=== PATIENT | female | born 1980 | race Caucasian/White ===

== ENCOUNTER 2016-10-10 22:48 | Inpatient (IN) | payer OTHER ==
[2016-10-10] MEDS ORDERED: fentaNYL* 50 MCG/ML 2 ML VIAL (100 MCG VIAL) ONE (23:18)
[2016-10-10] MEDS ORDERED: fentaNYL* 50 MCG/ML 2 ML VIAL (100 MCG VIAL) IV ONE (23:21)
[2016-10-10 23:29] LABS: Hematocrit 38 % (35-47); Mean Corpuscular HGB Conc 34 g/dl (31-36); Mean Corpuscular Hemoglobin 29 pg (27-31); Mean Corpuscular Volume 85 fL (80-97); Mean Platelet Volume 9 um3 (7.4-10.4); Red Blood Count 4.44 10^6/ul (4.0-5.4); Red Cell Distribution Width 14 % (10.5-15); White Blood Count 8.7 10^3/ul (3.5-10.8)
[2016-10-11] MEDS ORDERED: Oxytocin in LR* 0 UNITS/0 ML BAG IVPB ONE (00:05)
[2016-10-11] MEDS ORDERED: Oxytocin in LR* 20 UNITS/1,000 ML BAG IVPB ONE (02:13)
[2016-10-11] MEDS ORDERED: Acetaminophen TAB* 325 MG PO PRN (02:47)
[2016-10-11] MEDS ORDERED: Witch Hazel PAD* JAR TOPICAL PRN (02:47)
[2016-10-11] MEDS ORDERED: Dibucaine 1% 28.35 GM TUBE PR PRN (02:47)
[2016-10-11] MEDS ORDERED: oxyCODONE/Acetamin 5/325 MG* TAB PO PRN (02:52)
[2016-10-11] MEDS ORDERED: Oxytocin in LR* 20 UNITS/1,000 ML BAG IVPB SCH (03:00)
[2016-10-11] MEDS: Ibuprofen TAB* 600 MG PO PRN ×3 (05:09→20:29)
[2016-10-11] MEDS: Docusate CAP* 100 MG PO SCH ×3 (09:10→20:28)
[2016-10-12 00:31] VITALS: BP 111/64
[2016-10-12 01:22] LABS: Hematocrit 32 % (35-47); Hemoglobin 10.7 g/dl (12.0-16.0); Mean Corpuscular HGB Conc 34 g/dl (31-36); Mean Corpuscular Hemoglobin 29 pg (27-31); Mean Corpuscular Volume 87 fL (80-97); Mean Platelet Volume 9 um3 (7.4-10.4); Red Blood Count 3.66 10^6/ul (4.0-5.4); Red Cell Distribution Width 14 % (10.5-15); White Blood Count 10.3 10^3/ul (3.5-10.8)
[2016-10-12] MEDS ORDERED: Ferrous Gluconate TAB* 324 MG TAB PO SCH (09:00)
== END 2016-10-12 03:15 | disposition home or self-care (01) | DRG 560 ==
LOC: MCHOBOUT 22:48 → MCHOB 22:52
PROVIDERS: ADMIT Midwife; ATTEND Midwife
PROC: 10E0XZZ Delivery of Products of Conception, External Approach (ICD-10-PCS; principal; 2016-10-11)
PROC: 0HQ9XZZ Repair Perineum Skin, External Approach (ICD-10-PCS; 2016-10-11)
DX: O48.0 Post-term pregnancy (principal); O69.89X0 Labor and delivery complicated by other cord complications, not applicable or unspecified; Z3A.40 40 weeks gestation of pregnancy; O70.0 First degree perineal laceration during delivery; Z37.0 Single live birth
CPT/HCPCS: 36415; 85025; 86850; 86900; 86901; A9270-GY; J3010

== ENCOUNTER 2017-01-07 09:43 | Emergency (ER) | payer MEDICAID ==
[2017-01-07 10:00] VITALS: BP 99/64
[2017-01-07] MEDS ORDERED: Acetaminophen TAB* 325 MG PO ONE (10:50)
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
== END 2017-01-07 11:03 | disposition home or self-care (01) ==
LOC: UCEAST 09:43
DX: S20.20XA Contusion of thorax, unspecified, initial encounter (principal); X58.XXXA Exposure to other specified factors, initial encounter; Y93.83 Activity, rough housing and horseplay; Y92.9 Unspecified place or not applicable; Z88.1 Allergy status to other antibiotic agents
CPT/HCPCS: 99212; A9270-GY; G0463

== ENCOUNTER 2017-01-29 10:23 | Emergency (ER) | payer MEDICAID ==
[2017-01-29 12:43] VITALS: BP 94/61
--- NOTE | 2017-01-29 15:40 | UC ---
Throat Pain/Nasal Ac HPI - HPI Summary HPI Summary: PT NOTED INCREASING PAINFUL SWELLING UNDER RT JAW LINE YESTERDAY. PT ALSO REPORTS BAD TASTE IN MOUTH. PAIN WITH SWALLOWING. DENIES FEVER, CHILLS, MYALGIS, SINUS SX, RASHES, COUGH, MATOS, DENTAL PAIN. - History of Current Complaint Chief Complaint: UCRespiratory Stated Complaint: SORE THROAT Time Seen by Provider: 01/29/17 10:51 Hx Obtained From: Patient Hx Last Menstrual Period: delivered 10/11/16, no menses yet Onset/Duration: Sudden Onset, Lasting Days, Still Present, Worse Since - today Severity: Moderate Pain Intensity: 5 Pain Scale Used: Adult Non Verbal Cough: None Associated Signs & Symptoms: Positive: Dysphagia - pain. Negative: Drooling, Wheezing, Hoarseness, Sinus Discomfort, Nasal Discharge, Fever, Vomiting, Rash - Allergies/Home Medications Allergies/Adverse Reactions: Allergies Allergy/AdvReac Type Severity Reaction Status Date / Time Amoxicillin Allergy Rash Verified 01/29/17 10:47 PMH/Surg Hx/FS Hx/Imm Hx Previously Healthy: Yes - Surgical History Surgical History: Yes Surgery Procedure, Year, and Place: L shoulder - Family History Known Family History: Positive: Cardiac Disease, Diabetes - Social History Occupation: Employed Full-time Lives: With Family Alcohol Use: None Substance Use Type: None Smoking Status (MU): Never Smoked Tobacco - Immunization History Most Recent Influenza Vaccination: declined Most Recent Pneumonia Vaccination: never Review of Systems Constitutional: Negative Skin: Negative Eyes: Negative ENT: Sore Throat Respiratory: Negative Cardiovascular: Negative Gastrointestinal: Negative Genitourinary: Negative Neurological: Negative Psychological: Negative All Other Systems Reviewed And Are Negative: Yes Physical Exam Triage Information Reviewed: Yes Appearance: Well-Appearing, No Pain Distress, Well-Nourished Vital Signs: Initial Vital Signs Temp 96.7 F 01/29/17 10:48 Pulse 92 01/29/17 10:48 Resp 16 01/29/17 10:48 BP 119/66 01/29/17 10:48 Pulse Ox 100 01/29/17 10:48 Vital Signs Reviewed: Yes Eyes: Positive: Conjunctiva Clear. Negative: Discharge ENT: Positive: Hearing grossly normal, Pharynx normal, TMs normal. Negative: Nasal congestion, Nasal drainage, Tonsillar swelling, Tonsillar exudate, Trismus , Muffled/hoarse voice Neck: Positive: Supple, Tenderness @ - swollen tender hot submandibular gland. surrounding lad, Enlarged Nodes @ Respiratory: Positive: Lungs clear, Normal breath sounds, No respiratory distress, No accessory muscle use Cardiovascular: Positive: RRR, No Murmur Musculoskeletal Exam: Normal Neurological: Positive: Alert, Muscle Tone Normal Psychological: Positive: Age Appropriate Behavior Skin Exam: Normal Throat Pain/Nasal Course/Dx - Course Course Of Treatment: called this pt yesterday evening(01/29/17) and again today to check on her. no answer. left message that she could call me with questions or concerns. left my cell number. followed up with pt via phone over the weekend. pt called back(01/30/17) pt had increassed pain/swelling/calor on but by the time I spoke with her calor, pain and swelling mild-mod dimminished but pt still anxious. encouraged continued use of tart, warm compress and abx. 01/31/18 calor resolved, pain and swelling significantly diminished but remaining swelling now feeling hard. spoke with pt again this am. pain gone but hard lump remains. recommeded pt establish with pcp(vibha purdy) for follow up. - Differential Dx/Diagnosis Differential Diagnosis/HQI/PQRI: Pharyngitis, Tonsillitis, URI Provider Diagnoses: sialodinitis Discharge - Discharge Plan Condition: Stable Disposition: HOME Prescriptions: Cephalexin CAP* [Keflex CAP*] 500 mg PO BID #20 cap Patient Education Materials: Sialoadenitis (ED) Referrals: No Primary Care Phys,NOPCP [Primary Care Provider] - Additional Instructions: CEPHALEXIN: The antibiotic you've been prescribed is a member of the cephalosporin class. This type of antibiotic covers a wide variety of infections, including those of the skin, lungs, and urinary tract. It's useful for staph infections. This antibiotic is slightly similar to the penicillin family. In rare cases , a person who is allergic to penicillin will also be allergic to this medication. If you have had a severe allergic reaction to penicillin, and have not taken this antibiotic since that time, notify your doctor. Antibiotics which cover many germs ("broad spectrum" antibiotics) are more likely to cause diarrhea or "yeast" infections. Women prone to vaginal yeast problems may suffer an attack after taking this antibiotic. In infants, oral thrush (white spots "stuck" on the cheek) or yeast diaper rash may result. See your doctor if these problems occur. Call at once if you develop itching, hives , shortness of breath, or lightheadedness. ANYTIME YOU TAKE AN ANTIBIOTIC, IT IS IMPORTANT TO REPLENISH THE BODY'S SUPPLY OF "GOOD BACTERIA." YOU CAN GET GOOD BACTERIA FROM HIGH QUALITY CULTURED FOODS SUCH LOCAL YOGURT, SOUR KRAUT, NICK CEASAR, NATURALLY FERMENTED PICKLES AND PROBIOTIC DRINKS. YOU CAN ALSO GET GOOD BACTERIA FROM A PROBIOTIC SUPPLEMENT. FOLLOW-UP CARE: You should establish with a private physician for follow-up care. If you are unable to get a timely appointment, or if you are worsening, call us or return for re-evaluation. An additional resource available to assist in finding the appropriate physician for your health care needs is the Physician Referral Center. You may contact them by calling [phone].
[2017-01-29 16:40] LABS: EBV Response YES
[2017-01-29 17:03] LABS: Hematocrit 41 % (35-47); Hemoglobin 13.5 g/dl (12.0-16.0); Mean Corpuscular HGB Conc 33 g/dl (31-36); Mean Corpuscular Hemoglobin 29 pg (27-31); Mean Corpuscular Volume 88 fL (80-97); Mean Platelet Volume 8 um3 (7.4-10.4); Red Blood Count 4.61 10^6/ul (4.0-5.4); Red Cell Distribution Width 15 % (10.5-15); White Blood Count 7.2 10^3/ul (3.5-10.8)
[2017-01-29 17:12] LABS: Manual Entry Verification MD; Mono Internal Control QC Line Present
[2017-01-29 19:25] LABS: Erythrocyte Sed Rate 8 mm/Hr (0-14)
--- NOTE | 2017-01-30 14:23 | ED ---
Progress - Progress Note Progress Note: cbc/crp/mono reviewed and neg no change in management Ljj Course/Dx - Diagnoses Provider Diagnoses: Pharyngitis
[2017-01-31 16:10] LABS: EBV Capsid Ag IgG Ab Positive (Negative); EBV Capsid Ag IgM Ab Negative (Negative)
== END 2017-01-29 13:05 | disposition home or self-care (01) ==
LOC: UCEAST 10:23
DX: K11.20 Sialoadenitis, unspecified (principal); Z88.1 Allergy status to other antibiotic agents
CPT/HCPCS: 36415; 85025; 85652; 86141; 86308; 86664; 86665; 99212; G0463

== ENCOUNTER 2017-06-10 12:05 | Emergency (ER) | payer OTHER ==
[2017-06-10 12:16] VITALS: BP 101/67
--- NOTE | 2017-06-10 12:50 | RAD ---
HISTORY: Left foot and ankle pain, trauma COMPARISONS: None VIEWS: 6, Frontal, lateral, and oblique views of the left foot and left ankle FINDINGS: BONE DENSITY: Normal. BONES: There is a nondisplaced fracture of the base of the fifth metatarsal with articular extension. JOINTS: There is no arthropathy. ALIGNMENT: There is no dislocation. SOFT TISSUES: Unremarkable. OTHER FINDINGS: None. IMPRESSION: NONDISPLACED FRACTURE OF THE BASE OF THE FIFTH METATARSAL.
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
== END 2017-06-10 13:30 | disposition home or self-care (01) ==
LOC: UCEAST 12:05
DX: S92.355A Nondisplaced fracture of fifth metatarsal bone, left foot, initial encounter for closed fracture (principal); W00.1XXA Fall from stairs and steps due to ice and snow, initial encounter; Y93.01 Activity, walking, marching and hiking; Y92.9 Unspecified place or not applicable
CPT/HCPCS: 99211; G0463

== ENCOUNTER 2018-01-03 09:36 | Emergency (ER) | payer OTHER ==
[2018-01-03 09:59] VITALS: BP 103/72
--- NOTE | 2018-01-03 10:46 | UC ---
Skin Complaint HPI - HPI Summary HPI Summary: Patient presents with complaints of itchy rash on lower legs. She reports the rash begins with small vesicle, and then develops severe itching. She states the rash began on the right inside ankle and now has spread with the upper calfs , and thigh. She denies fever, chills, pain, tick bite or joint pain. She states the rash becomes more itchy when it get warm, and improves some when she applied hydrocortisone cream. - History of Current Complaint Chief Complaint: UCRash Time Seen by Provider: 01/03/18 10:33 Stated Complaint: RASH Hx Obtained From: Patient Hx Last Menstrual Period: 12/27/17 Onset/Duration: Gradual Onset, Lasting Days Skin Exposure Onset/Duration: Days Ago Onset Severity: Mild Current Severity: Mild Pain Intensity: 0 Location: Discrete, Other - right ankle, medial calves, and right medical lower thigh. Character: Pruritus, Raised Aggravating Factor(s): Touch, Other - heat Alleviating Factor(s): OTC Creams/Salves Associated Signs & Symptoms: Positive: Rash Related History: Possible Reaction to: Environmental Exposure - Allergy/Home Medications Allergies/Adverse Reactions: Allergies Allergy/AdvReac Type Severity Reaction Status Date / Time amoxicillin Allergy Rash Verified 01/03/18 09:59 Home Medications: Home Medications Hydrocortisone [Cortisone] 28 gm TP DAILY PRN 01/03/18 [History Confirmed ] Review of Systems Constitutional: Negative Skin: Rash Eyes: Negative ENT: Negative Respiratory: Negative Cardiovascular: Negative Gastrointestinal: Negative Genitourinary: Negative Motor: Negative Neurovascular: Negative Musculoskeletal: Negative Neurological: Negative Psychological: Negative Is Patient Immunocompromised?: No All Other Systems Reviewed And Are Negative: Yes PMH/Surg Hx/FS Hx/Imm Hx Previously Healthy: Yes - Surgical History Surgical History: Yes Surgery Procedure, Year, and Place: L shoulder. - Family History Known Family History: Positive: Cardiac Disease, Diabetes - Social History Occupation: Employed Full-time Lives: With Family Alcohol Use: Rare Substance Use Type: None Smoking Status (MU): Never Smoked Tobacco Have You Smoked in the Last Year: No - Immunization History Most Recent Influenza Vaccination: declined Most Recent Pneumonia Vaccination: never Physical Exam Triage Information Reviewed: Yes Appearance: Well-Appearing Vital Signs: Initial Vital Signs Temp 98.1 F 01/03/18 09:55 Pulse 69 01/03/18 09:55 Resp 14 07/29/18 09:55 BP 103/72 01/03/18 09:55 Pulse Ox 100 01/03/18 09:55 Vital Signs Reviewed: Yes Eye Exam: Normal ENT Exam: Normal Neck: Positive: 1 Respiratory Exam: Normal Cardiovascular Exam: Normal Abdominal Exam: Normal Musculoskeletal Exam: Normal Neurological Exam: Normal Skin Exam: Other - vesicular well defined circular lesions of right medical ankle, (clustered), with 5-7 similar vesicles scattered up the medial calves, and right medial thigh. No surrounding induration or flucuance. Not in a dermatomal pattern. Course/Dx - Course Course Of Treatment: Patient presents with what appears to be poision cassia and/ or oak. She was treated with prednisone 20 mg daily, and topical cultivate ointment. SHe is brestfeeding and these medications can be used short term on skin but not on nipple area, patient is to use on lower extremities for one week only. She was told to follow up with her PCP in one week if her rash does not resolve. She verbalized understanding of and in agreement with the discharge plan. - Differential Diagnoses - Skin Complaint Differential Diagnoses: Poison Cassia, Poison Silex - Diagnoses Provider Diagnoses: Poision oak/cassia Discharge - Sign-Out/Discharge Documenting (check all that apply): Patient Departure - Discharge Plan Condition: Stable Disposition: HOME Prescriptions: Fluticasone Propionate 30 gm TP BID #1 oint...g. predniSONE [Prednisone 20 MG TAB] 20 mg PO DAILY #7 tablet Patient Education Materials: Poison Cassia (ED) Referrals: No Primary Care Phys,NOPCP [Primary Care Provider] - Additional Instructions: You will need to follow up with your PCP if no improvement in one week. - Billing Disposition and Condition Condition: STABLE Disposition: Home
== END 2018-01-03 10:51 | disposition home or self-care (01) ==
LOC: UCEAST 09:36
DX: L23.7 Allergic contact dermatitis due to plants, except food (principal); Z88.0 Allergy status to penicillin
CPT/HCPCS: 99211; G0463

== ENCOUNTER 2019-03-05 11:28 | Emergency (ER) | payer OTHER ==
--- OUTSIDE RECORDS SUMMARY | 2019-03-05 11:36 | XMS REPORT | Continuity of Care Document ---
:1980 External Reference #:[id number] Author Name NAPOLEON Solares (transmitted by agent of provider Renee Conde) Address [address] [place] [address] Care Team Providers Name Role Phone Referred By Friend Care Team Information Counter Tender Unavailable Problems Description No Information Available Social History Type Date Description Comments Sex Unknown Tobacco Use Start: Unknown Never Smoked Cigarettes ETOH Use Occasionally consumes alcohol Tobacco Use Start: Unknown Patient has never smoked Tobacco Use Start: Unknown No Second Hand Smoke Exposure Recent Travel There has not been recent travel abroad Allergies, Adverse Reactions, Alerts Active Allergies Reaction Severity Comments Date Amoxicillin 02/16/2019 Medications Description No Active Medications Immunizations Description No Information Available Vital Signs Date Vital Result Comment 02/16/2019 10:33am BP Systolic 113 mmHg BP Diastolic 63 mmHg Height 68 inches 5'8" Weight 135.00 lb BMI (Body Mass Index) 20.5 kg/m2 Heart Rate 80 /min Respiratory Rate 16 /min O2 % BldC Oximetry 98 % Results Description No Information Available Procedures Description No Information Available Medical Devices Description No Information Available Encounters Description No Information Available Assessments Description No Information Available Plan of Treatment No Information Available Functional Status Description No Information Available Mental Status Description No Information Available Referrals Description No Information Available
--- OUTSIDE RECORDS SUMMARY | 2019-03-05 11:36 | XMS REPORT | Continuity of Care Document ---
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 Problems Active Problems Provider Date Chronic allergic conjunctivitis NAPOLEON Solares Onset: 2018 Allergic rhinitis due to pollen NAPOLEON Solares Onset: 2018 Social History Type Date Description Comments Sex Unknown Tobacco Use Start: Unknown Never Smoked Cigarettes ETOH Use Occasionally consumes alcohol Tobacco Use Start: Unknown Patient has never smoked Tobacco Use Start: Unknown No Second Hand Smoke Exposure Smoking Status Reviewed: 02/16/19 No Second Hand Smoke Exposure Recent Travel There has not been recent travel abroad Allergies, Adverse Reactions, Alerts Active Allergies Reaction Severity Comments Date Amoxicillin 02/16/2019 Medications Active Medications SIG Qnty Indications Ordering Provider Date Ketotifen Fumarate instill one drop 5ml H10.45 Christopher ADomo 02/16/2019 to affected MD [facility] 0.025% Solution eye(s) twice a day as needed. Fluticasone spray 2 sprays 9.900ml J30.1 Christopher ADomo 02/16/2019 Propionate Nasal in each nostril MD [facility] [place] once daily. 50mcg/Act Suspension Fexofenadine HCL take 1 tablet by 30tabs J30.1 Christopher A. 02/16/2019 mouth daily as MD [facility] 180mg Tablets needed History Medications No Active Medications Unknown 02/16/2019 - 02/16/2019 Immunizations Description No Information Available Vital Signs Date Vital Result Comment 02/16/2019 10:33am BP Systolic 113 mmHg BP Diastolic 63 mmHg Height 68 inches 5'8" Weight 135.00 lb BMI (Body Mass Index) 20.5 kg/m2 Heart Rate 80 /min Respiratory Rate 16 /min O2 % BldC Oximetry 98 % Results Test Date Facility Test Result H/L Range Note Total IgE 02/16/2019 [facility] .Total IgE <pending> [address] [place] [address] [phone] Order 02/16/2019 [facility] Skin Test Seasonal < pending> and Environmental Order 02/16/2019 [facility] Blood Collection via < pending> Venipuncture Procedures Date Code Description Status 02/16/2019 74670 Allergy Tests Percutaneous W/ Allergenic Extracts Completed 02/16/2019 69161 Allergy Tests Percutaneous W/ Allergenic Extracts Completed Medical Devices Description No Information Available Encounters Type Date Location Provider Dx Diagnosis Office Visit 02/16/2019 [place] Ruby Shay J30.1 Allergic rhinitis due 10:15a Fenstermachemontserrat R[facility]-C to pollen H10.45 Other chronic allergic conjunctivitis Assessments Date Code Description Provider 02/16/2019 J30.1 Allergic rhinitis due to pollen Ruby Shay Fenstermacher, RPA -C 02/16/2019 H10.45 Other chronic allergic conjunctivitis Ruby SDomo Fenstermacher, RPA-C 02/16/2019 J30.1 Allergic rhinitis due to pollen Afl Jama MD 02/16/2019 J30.89 Other allergic rhinitis Alf Jama MD Plan of Treatment Future Appointment(s):03/18/2019 9:00 am - Sary Hargrove NP at [id number] - Ruby Mckinley RPA-CJ30.1 Allergic rhinitis due to pollenNew Medication:Fluticasone Propionate Nasal [place] 50 mcg/Act - spray 2 sprays in each nostril once daily.Fexofenadine HCL 180 mg - take 1 tablet by mouth daily as neededComments:Patient with seasonal allergic rhinitis and allergic conjunctivitis. I will screen for common environmental allergies. I will give Fluticasone nasal spray for daily prophylaxis of the nose. I will giveAllegra for breakthrough nasal symptoms. I will give Ketotifen eye drops to use as needed for breakthrough eye allergy symptoms.Follow up:2 weeks - discuss allergy test results and response to [id number] Other chronic allergic conjunctivitisNew Medication:Ketotifen Fumarate 0.025 % - instill one drop to affected eye(s) twice a day as needed. Functional Status Description No Information Available Mental Status Description No Information Available Referrals Description No Information Available
[2019-03-05 11:49] VITALS: BP 100/45
[2019-03-05] MEDS ORDERED: Ibuprofen TAB* 600 MG PO ONE (12:18)
--- NOTE | 2019-03-05 12:31 | UC ---
UC General HPI - HPI Summary HPI Summary: Patient is a 39yo female presenting with swollen salivary gland x1 week. She notes she has had a blocked salivary gland in the past that became infected very quickly and required antibiotics. She notes this feel like the same thing again. Denies notes enlarged right gland that is painful. Denies any salivary stones that she can tell. Denies sore throat or dry mouth. Denies ear pain. Notes nasal congestion and PND from seasonal allergies. Denies fever, chills, nausea, vomiting. - History of Current Complaint Chief Complaint: UCGeneralIllness Stated Complaint: SWOLLEN AREA IN GLAND Hx Obtained From: Patient Hx Last Menstrual Period: end of january Onset/Duration: Gradual Onset, Lasting Days Onset Severity: Mild Current Severity: Moderate Pain Intensity: 5 - Allergy/Home Medications Allergies/Adverse Reactions: Allergies Allergy/AdvReac Type Severity Reaction Status Date / Time amoxicillin Allergy Rash Verified 03/05/19 11:49 PMH/Surg Hx/FS Hx/Imm Hx Previously Healthy: Yes - Surgical History Surgical History: Yes Surgery Procedure, Year, and Place: [facility]. - Family History Known Family History: Positive: Cardiac Disease, Diabetes - Social History Alcohol Use: Occasionally Substance Use Type: None Smoking Status (MU): Never Smoked Tobacco Have You Smoked in the Last Year: No - Immunization History Most Recent Influenza Vaccination: declined Most Recent Pneumonia Vaccination: never Review of Systems All Other Systems Reviewed And Are Negative: Yes Constitutional: Positive: Negative. Negative: Fever, Chills Skin: Positive: Negative Eyes: Positive: Negative ENT: Negative: Sore Throat, Ear Ache, Nasal Discharge, Sinus Congestion, Sinus Pain/Tenderness Respiratory: Positive: Negative. Negative: Shortness Of Breath, Cough Cardiovascular: Positive: Negative. Negative: Palpitations, Chest Pain Gastrointestinal: Positive: Negative. Negative: Abdominal Pain, Vomiting, Diarrhea, Nausea Musculoskeletal: Positive: Negative Neurological: Positive: Negative. Negative: Headache Physical Exam Triage Information Reviewed: Yes Appearance: Well-Appearing, No Pain Distress, Well-Nourished Vital Signs: Initial Vital Signs Temp 99 F 03/05/19 11:45 Pulse 72 03/05/19 11:45 Resp 14 03/05/19 11:45 BP 100/45 03/05/19 11:45 Pulse Ox 100 03/05/19 11:45 Vital Signs Reviewed: Yes Eyes: Positive: Conjunctiva Clear. Negative: Conjunctiva Inflamed, Discharge ENT: Positive: Hearing grossly normal, Nasal congestion, TMs normal, Uvula midline, Other - PND noted. No sialolith noted on exam.. Negative: Pharyngeal erythema, Nasal drainage, Tonsillar swelling, Tonsillar exudate, Dental tenderness, Sinus tenderness Neck: Positive: Supple, Tenderness @ - significant pain to palpation of right anterior neck, Enlarged Nodes @ - right submandibular gland Respiratory Exam: Normal Respiratory: Positive: Lungs clear, Normal breath sounds, No respiratory distress. Negative: No accessory muscle use, Crackles, Stridor, Wheezing Cardiovascular Exam: Normal Cardiovascular: Positive: RRR. Negative: Tachycardia Musculoskeletal Exam: Normal Musculoskeletal: Positive: Strength Intact, ROM Intact Neurological: Positive: Alert Psychological: Positive: Age Appropriate Behavior Course/Dx - Course Course Of Treatment: Discussed with patient to take clindamycin for treatment of possible infection based on her history of rapid onset infection of gland last time. She received ibuprofen here and may continue to take it at home for pain relief. Instructed her to continue conservative treatment including warm compresses and sour candies to help stimulate gland. Patient instructed to return or go to the emergency room if she experiences fever, nausea, vomiting, or severe pain. I stressed the importance of follow up with the ENT referral given since this is a recurrent issue for her. Patient voiced understanding and agreed to the treatment plan. - Diagnoses Provider Diagnosis: Submandibular gland swelling Discharge ED - Sign-Out/Discharge Documenting (check all that apply): Patient Departure All imaging exams completed and their final reports reviewed: No Studies - Discharge Plan Condition: Stable Disposition: HOME Prescriptions: Clindamycin Cap(NF) [Clindamycin Cap 300 mg Cap(NF)] 300 mg PO TID #21 cap Referrals: [facility] [Outside] - If Needed Abhishek Adamson MD [Medical Doctor] - As Soon As Possible Additional Instructions: As discussed, take clindmycin as prescribed for treatment of infected salivary gland. You may continue to take ibuprofen as directed for pain relief. Follow up with the ENT referral as listed below for further evaluation. Return or go to the emergency room if you experience fever, nausea, or vomiting. - Billing Disposition and Condition Condition: STABLE Disposition: Home - Attestation Statements Provider Attestation: I was available for consult. This patient was seen by the PATTI. The patient was not presented to, seen by, or examined by me. Stewart Tolbert MD
== END 2019-03-05 12:29 | disposition home or self-care (01) ==
LOC: UCEAST 11:28
DX: K11.8 Other diseases of salivary glands (principal); Z88.0 Allergy status to penicillin
CPT/HCPCS: 99212; A9270-GY; G0463

== ENCOUNTER 2019-06-22 14:29 | Emergency (ER) | payer OTHER ==
[2019-06-22 14:37] VITALS: BP 102/57
--- NOTE | 2019-06-22 14:53 | UC ---
Throat Pain/Nasal Ac HPI - HPI Summary HPI Summary: 39 yo healthy woman with previous hx of salivary gland obstruction and presumed infection, responded to treatment with antibiotics but not to other interventions. She has had recurrence over the past few days with pain and difficulty swallowing, some malaise, but no fever, chills, myalgias, changes in salivation or systemic symptoms. healthy dentition Previouos occurrences were 01/2017 and 02/2019. She has not had imaging of her head and neck, and has no other lumps or bumps in the head and neck area. Feels well. - History of Current Complaint Chief Complaint: UCGeneralIllness Stated Complaint: SWOLLEN GLAND Time Seen by Provider: 06/22/19 14:40 Hx Obtained From: Patient Hx Last Menstrual Period: a few weeks ago Onset/Duration: Gradual Onset, Lasting Days Severity: Mild Pain Intensity: 4 Cough: None Associated Signs & Symptoms: Positive: Dysphagia. Negative: Fever - Epiglottits Risk Factors Epiglottis Risk Factors: Negative - Allergies/Home Medications Allergies/Adverse Reactions: Allergies Allergy/AdvReac Type Severity Reaction Status Date / Time amoxicillin Allergy Rash Verified 06/22/19 14:37 Home Medications: Home Medications Ibuprofen 600 mg PO ONCE PRN 06/22/19 [History Confirmed 06/22/19] PMH/Surg Hx/FS Hx/Imm Hx Previously Healthy: Yes - Surgical History Surgical History: Yes Surgery Procedure, Year, and Place: [facility]. - Family History Known Family History: Positive: Cardiac Disease, Diabetes, Other - father of cancer - Social History Occupation: Employed Full-time Lives: With Family Alcohol Use: Occasionally Substance Use Type: None Smoking Status (MU): Never Smoked Tobacco Have You Smoked in the Last Year: No - Immunization History Most Recent Influenza Vaccination: declined Most Recent Pneumonia Vaccination: never Review of Systems All Other Systems Reviewed And Are Negative: Yes Constitutional: Positive: Fatigue. Negative: Fever Skin: Positive: Negative Eyes: Positive: Negative ENT: Positive: Other - nodule right submandibular area. Respiratory: Positive: Negative Cardiovascular: Positive: Negative Gastrointestinal: Positive: Negative Genitourinary: Positive: Negative Motor: Positive: Negative Neurovascular: Positive: Negative Musculoskeletal: Positive: Negative Neurological: Positive: Negative Psychological: Positive: Negative Is Patient Immunocompromised?: No Physical Exam Triage Information Reviewed: Yes Appearance: Well-Appearing, No Pain Distress, Thin Vital Signs: Initial Vital Signs Temp 99 F 06/22/19 14:34 Pulse 71 06/22/19 14:34 Resp 18 06/22/19 14:34 BP 102/57 06/22/19 14:34 Pulse Ox 100 06/22/19 14:34 Eyes: Positive: Conjunctiva Clear ENT: Positive: Pharynx normal, TMs normal, Other - 3 x 3 cm firm nodule in the right submandibular area without other masses or adenopathy. No pre-or post auricular nodes.. Negative: Pharyngeal erythema, Tonsillar swelling Dental Exam: Normal Neck: Positive: Supple, Nontender, No Lymphadenopathy Respiratory: Positive: Lungs clear, Normal breath sounds Cardiovascular: Positive: RRR, No Murmur Musculoskeletal Exam: Normal Neurological Exam: Normal Neurological: Positive: Alert Psychological Exam: Normal Skin Exam: Normal Throat Pain/Nasal Course/Dx - Course Course Of Treatment: Begin antibiotiics given hx of recurrent salivary gland infections and possible stones. Ensure ENT follow up. - Differential Dx/Diagnosis Differential Diagnosis/HQI/PQRI: Pharyngitis, Other - blocked salivary gland Provider Diagnosis: Sialoadenitis Discharge ED - Sign-Out/Discharge Documenting (check all that apply): Patient Departure All imaging exams completed and their final reports reviewed: No Studies - Discharge Plan Condition: Stable Disposition: HOME Prescriptions: Cephalexin CAP* [Keflex 500 CAP*] 500 mg PO BID #14 cap Patient Education Materials: Sialoadenitis (ED) Referrals: No Primary Care Phys,NOPCP [Primary Care Provider] - Rafiq Gerber MD [Medical Doctor] - Additional Instructions: Ensure high intake of fluids and continue ibuprofen for control of pain. You have been prescribed cephalexin for treatment of underlying infection--you have had this in the past without side effects. Follow up with ENT as discussed. - Billing Disposition and Condition Condition: STABLE Disposition: Home
== END 2019-06-22 15:22 | disposition home or self-care (01) ==
LOC: UCEAST 14:29
DX: K11.20 Sialoadenitis, unspecified (principal); R53.83 Other fatigue; Z88.0 Allergy status to penicillin
CPT/HCPCS: 99212; G0463